=== PATIENT | female | born 1965 | race American Indian/Alaskan Native ===

== ENCOUNTER 2019-09-03 17:58 | Emergency (ER) | payer SELFPAY ==
[2019-09-03] MEDS ORDERED: ASPIRIN 325 MG TAB PO ONE (20:25)
--- NOTE | 2019-09-03 21:06 | XRay Report ---
. CHEST 2 VIEWS INDICATION / CLINICAL INFORMATION: Chest Pain. COMPARISON: None available. FINDINGS: SUPPORT DEVICES: None. HEART / MEDIASTINUM: No significant abnormality. LUNGS / PLEURA: No significant pulmonary or pleural abnormality. No pneumothorax. ADDITIONAL FINDINGS: No significant additional findings. IMPRESSION: 1. No acute findings. Signer Name: Gautam Smallwood MD Signed: 09/03/2019 9:01 PM Workstation Name: [id number]
[2019-09-03 21:19] LABS: Basophils % (Auto) 0.6 % (0.0-1.8); Eosinophils % (Auto) 0.1 % (0.0-4.3); Hematocrit 39.6 % (30.3-42.9); Hemoglobin 12.7 gm/dl (10.1-14.3); Lymphocytes # (Auto) 1.4 K/mm3 (1.2-5.4); Lymphocytes % (Auto) 48.5 % (13.4-35.0); Mean Corpuscular HGB Conc 32 % (30-34); Mean Corpuscular Volume 80 fl (79-97); Monocytes # (Auto) 0.4 K/mm3 (0.0-0.8); Monocytes % (Auto) 12.9 % (0.0-7.3); Platelet Count 238 K/mm3 (140-440); Red Blood Count 4.93 M/mm3 (3.65-5.03); Red Cell Distribution Width 14.8 % (13.2-15.2)
[2019-09-03 21:42] LABS: BUN/Creatinine Ratio 10; Blood Urea Nitrogen 9 mg/dL (7-17); Calcium 9.1 mg/dL (8.4-10.2)
[2019-09-03 21:43] LABS: Hemolysis Index 9
--- NOTE | 2019-09-03 23:11 | Emergency Department Report ---
ED Chest Pain HPI - General Chief Complaint: Chest Pain Stated Complaint: FELL/DIZZY/SOB/CP Time Seen by Provider: 09/03/19 23:08 Source: patient Mode of arrival: Ambulatory Limitations: No Limitations - History of Present Illness Severity scale (0 -10): 10 - Related Data Allergies Allergy/AdvReac Type Severity Reaction Status Date / Time No Known Allergies Allergy Unverified 09/03/19 18:09 ED Review of Systems ROS: Stated complaint: FELL/DIZZY/SOB/CP Other details as noted in HPI ED Past Medical Hx - Past Medical History Hx Hypertension: Yes Hx Diabetes: Yes - Surgical History Past Surgical History?: No - Social History Smoking Status: Unknown if ever smoked Substance Use Type: None ED Physical Exam - General Limitations: No Limitations ED Course Vital Signs 09/03/19 18:13 Temperature 99.4 F Pulse Rate 88 Respiratory 20 Rate Blood Pressure 166/96 [Right] O2 Sat by Pulse 97 Oximetry ED Medical Decision Making - Lab Data Result diagrams: 09/03/19 20:35 09/03/19 20:35 Critical care attestation.: If time is entered above; I have spent that time in minutes in the direct care of this critically ill patient, excluding procedure time. ED Disposition Condition: Stable Referrals: PRIMARY CARE, [Primary Care Provider] - 3-5 Days
[2019-09-03] MEDS ORDERED: ONDANSETRON 4 MG/2 ML INJ IV ONE (23:47)
[2019-09-03] MEDS ORDERED: MORPHINE 4 MG/1 ML INJ IV ONE (23:47)
[2019-09-04] MEDS ORDERED: ACETAMINOPHEN 500 MG TAB PO ONE (00:01)
[2019-09-04 01:32] LABS: C-Reactive Protein 0.7 mg/dL (0.00-1.30)
[2019-09-04 02:18] VITALS: BP 127/78
== END 2019-09-04 01:55 | disposition home or self-care (01) ==
LOC: ED 17:58
DX: R07.9 Chest pain, unspecified (principal); R06.02 Shortness of breath; R42 Dizziness and giddiness
CPT/HCPCS: 36415; 71046; 80048; 82728; 82947; 82962; 83615; 84145; 84484; 85025; 85379; 86140; 93005; 96374; 96375; 99285; J2270; J2405

== ENCOUNTER 2020-05-22 13:53 | Emergency (ER) | payer BC, MEDICAID, SELFPAY ==
[2020-05-22] MEDS ORDERED: TETANUS,DIPH,PERTUSS(ACELL) VACCINE 0.5 ML SYRINGE IM ONE (14:40)
--- NOTE | 2020-05-22 14:42 | Emergency Department Report ---
- General Chief Complaint: Wound/Laceration Stated Complaint: RT FINGER INJURY Time Seen by Provider: 05/22/20 14:32 Source: patient Mode of arrival: Ambulatory Limitations: No Limitations - History of Present Illness Initial Comments: This very pleasant 55-year-old female presents the emergency department chief complaint of an injury to her right middle finger. 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 She reports she sustained a small laceration. She is unsure of her last tetanus vaccine. She reports pain is now 10 in severity aggravated with any movement. Pain is described as dull and throbbing. - Related Data Previous Rx's Medication Instructions Recorded Last Taken Type Albuterol Mdi (or & Nicu Only) 1 puff IH QID PRN #8.5 gram 09/04/19 Unknown Rx [ProAir HFA Inhaler] Prednisone [predniSONE 5 mg (6-Day 5 mg PO .TAPER #1 tab.ds.pk 09/04/19 Unknown Rx Pack, 21 Tabs)] cephALEXin [Keflex] 500 mg PO Q8HR #30 cap 05/22/20 Unknown Rx traMADoL [Ultram 50 MG tab] 50 mg PO Q4HR PRN #12 tablet 05/22/20 Unknown Rx Allergies Allergy/AdvReac Type Severity Reaction Status Date / Time No Known Allergies Allergy Verified 05/22/20 14:04 ED Review of Systems ROS: Stated complaint: RT FINGER INJURY Other details as noted in HPI Comment: All other systems reviewed and negative Constitutional: denies: chills, fever Eyes: denies: eye pain, eye discharge, vision change ENT: denies: ear pain, throat pain Respiratory: denies: cough, shortness of breath, wheezing Cardiovascular: denies: chest pain, palpitations Endocrine: no symptoms reported Gastrointestinal: denies: abdominal pain, nausea, diarrhea Genitourinary: denies: urgency, dysuria, discharge Musculoskeletal: as per HPI, myalgia. denies: back pain, joint swelling, arthralgia Skin: denies: rash, lesions Neurological: denies: headache, weakness, paresthesias Psychiatric: denies: anxiety, depression Hematological/Lymphatic: denies: easy bleeding, easy bruising ED Past Medical Hx - Past Medical History Hx Hypertension: Yes Hx Diabetes: Yes - Social History Smoking Status: Never Smoker Substance Use Type: None - Medications Home Medications: Home Medications Medication Instructions Recorded Confirmed Last Taken Type Albuterol Mdi (or & Nicu Only) 1 puff IH QID PRN #8.5 gram 09/04/19 Unknown Rx [ProAir HFA Inhaler] Prednisone [predniSONE 5 mg (6-Day 5 mg PO .TAPER #1 tab.ds.pk 09/04/19 Unknown Rx Pack, 21 Tabs)] cephALEXin [Keflex] 500 mg PO Q8HR #30 cap 05/22/20 Unknown Rx traMADoL [Ultram 50 MG tab] 50 mg PO Q4HR PRN #12 tablet 05/22/20 Unknown Rx ED Physical Exam - General Limitations: No Limitations General appearance: alert, in no apparent distress - Head Head exam: Present: atraumatic, normocephalic - Eye Eye exam: Present: normal appearance, PERRL, EOMI Pupils: Present: normal accommodation - ENT ENT exam: Present: normal exam, normal orophraynx, mucous membranes moist - Neck Neck exam: Present: normal inspection, full ROM. Absent: tenderness, meningismus - Respiratory Respiratory exam: Present: normal lung sounds bilaterally. Absent: respiratory distress, wheezes, rales, rhonchi, stridor - Cardiovascular Cardiovascular Exam: Present: regular rate, normal rhythm, normal heart sounds. Absent: systolic murmur, diastolic murmur, rubs, gallop - GI/Abdominal GI/Abdominal exam: Present: soft, normal bowel sounds. Absent: distended, tenderness, guarding, rebound, rigid - Extremities Exam Extremities exam: Present: normal inspection, full ROM, tenderness (Tenderness to the distal tuft of the right third digit with a 1 cm superficial laceration. There is no active bleeding. There is normal distal sensation cap refill. There is ecchymosis to the tip of the finger. No deformity. Full active range of motion to full flexion extension of the DIP PIP a) - Back Exam Back exam: Present: normal inspection - Neurological Exam Neurological exam: Present: alert, oriented X3 - Psychiatric Psychiatric exam: Present: normal affect, normal mood - Skin Skin exam: Present: warm, dry, intact, normal color. Absent: rash ED Medical Decision Making - Radiology Data Radiology results: report reviewed, image reviewed Ordering Physician: ANDREA MCGEE Date of Service: 05/22/20 Procedure(s): XR finger(s) 2+V RT Accession Number(s): [id number] cc: ANDREA MCGEE Fluoro Time In Minutes: RIGHT RING FINGER, 3 VIEWS INDICATION: crush injury right 4rd finger. COMPARISON: No relevant prior imaging study available. FINDINGS: No acute, displaced fracture or dislocation is seen. No radiodense foreign bodies. IMPRESSION: 1. No acute findings. Signer Name: Tigre Ball MD Signed: 05/22/2020 3:14 PM Workstation Name: [id number] Transcribed By: KATHY Dictated By: Tigre Ball MD Electronically Authenticated By: Tigre Ball MD Signed Date/Time: 05/22/20 1514 - Medical Decision Making X-ray did not show any displaced fractures. The wound was thoroughly cleaned and irrigated in the ER. Tetanus is updated. Patient be discharged stable condition outpatient follow-up and pain medication. Recommend she return to the ER with any change or worsening symptoms patient verbalized understanding the diagnosis, treatment and follow-up instructions all questions were answered. - Differential Diagnosis Fracture, contusion, laceration Critical care attestation.: If time is entered above; I have spent that time in minutes in the direct care of this critically ill patient, excluding procedure time. ED Disposition Clinical Impression: Injury, crush, finger Qualifiers: Encounter type: initial encounter Qualified Code(s): S67.10XA - Crushing injury of unspecified finger(s), initial encounter Disposition: DC-01 TO HOME OR SELFCARE Is pt being admited?: No Condition: Stable Instructions: Crush Injury of the Hand, [id number] Prescriptions: cephALEXin [Keflex] 500 mg PO Q8HR #30 cap traMADoL [Ultram 50 MG tab] 50 mg PO Q4HR PRN #12 tablet PRN Reason: Pain Referrals: PRIMARY CAREMD [Primary Care Provider] - 3-5 Days [facility] [Provider Group] - 3-5 Days Forms: Work/School Release Form(ED) Time of Disposition: 15:22
--- NOTE | 2020-05-22 15:19 | XRay Report ---
RIGHT RING FINGER, 3 VIEWS INDICATION: crush injury right 4rd finger. COMPARISON: No relevant prior imaging study available. FINDINGS: No acute, displaced fracture or dislocation is seen. No radiodense foreign bodies. IMPRESSION: 1. No acute findings. Signer Name: Tigre Ball MD Signed: 05/22/2020 3:14 PM Workstation Name: [id number]
== END 2020-05-22 15:50 | disposition home or self-care (01) ==
LOC: ED 13:53
DX: S69.91XA Unspecified injury of right wrist, hand and finger(s), initial encounter (principal); I10 Essential (primary) hypertension; E11.9 Type 2 diabetes mellitus without complications; Z79.899 Other long term (current) drug therapy; X58.XXXA Exposure to other specified factors, initial encounter; Y93.89 Activity, other specified; Y92.89 Other specified places as the place of occurrence of the external cause; Y99.8 Other external cause status
CPT/HCPCS: 90471

== ENCOUNTER 2020-08-10 09:04 | Emergency (ER) | payer BC ==
[2020-08-10] MEDS ORDERED: ASPIRIN 325 MG TAB PO ONE (09:23)
--- NOTE | 2020-08-10 09:29 | Emergency Department Report ---
Blank Doc - Documentation Documentation: 55-year-old female that presents with worsening chest pains. Stated also has s ore throat and bilateral earaches. Denies any SOB. 1- This initial assessment/diagnostic orders/clinical plan/ treatment(s) is/are subject to change based on pt's health status, clinical progression and re- assessment by fellow clinical providers in the ED. Further treatment and workup at subsequent clinical provers discretion. Patient/guardians urged not to elope from ED as their condition may be serious if not clinically assessed and managed. 2-cardiac workup 3-strep swab
--- NOTE | 2020-08-10 09:57 | XRay Report ---
CHEST 2 VIEWS INDICATION / CLINICAL INFORMATION: chest pain. COMPARISON: 09/03/2019 FINDINGS: SUPPORT DEVICES: None. HEART / MEDIASTINUM: No significant abnormality. LUNGS / PLEURA: No significant pulmonary or pleural abnormality. No pneumothorax. ADDITIONAL FINDINGS: No significant additional findings. IMPRESSION: 1. No acute findings or significant interval change. Signer Name: Jarod Phillips MD Signed: 08/10/2020 9:53 AM Workstation Name: [id number]
[2020-08-10 10:08] LABS: Basophils % (Auto) 0.5 % (0.0-1.8); Eosinophils # (Auto) 0.1 K/mm3 (0.0-0.4); Eosinophils % (Auto) 1.1 % (0.0-4.3); Hematocrit 37.6 % (30.3-42.9); Hemoglobin 12.2 gm/dl (10.1-14.3); Lymphocytes # (Auto) 1.4 K/mm3 (1.2-5.4); Lymphocytes % (Auto) 26.1 % (13.4-35.0); Mean Corpuscular HGB Conc 32 % (30-34); Mean Corpuscular Volume 82 fl (79-97); Monocytes # (Auto) 0.3 K/mm3 (0.0-0.8); Monocytes % (Auto) 6.5 % (0.0-7.3); Platelet Count 271 K/mm3 (140-440); Red Blood Count 4.59 M/mm3 (3.65-5.03); Red Cell Distribution Width 14.4 % (13.2-15.2)
[2020-08-10 10:17] LABS: Alanine Aminotransferase 22 units/L (7-56); Albumin 4.3 g/dL (3.9-5); Blood Urea Nitrogen 10 mg/dL (7-17); Calcium 9.2 mg/dL (8.4-10.2); Hemolysis Index 2
[2020-08-10 10:24] LABS: INR 0.91 (0.87-1.13)
[2020-08-10 10:25] LABS: Partial Thromboplastin Time 24.3 Sec. (24.2-36.6)
[2020-08-10 10:36] LABS: BUN/Creatinine Ratio 14
[2020-08-10 21:12] VITALS: BP 165/80
--- NOTE | 2020-08-10 21:52 | Emergency Department Report ---
- General Chief Complaint: Chest Pain Stated Complaint: CHEST/THORAT/EAR PAIN Time Seen by Provider: 08/10/20 09:27 Source: patient Mode of arrival: Ambulatory Limitations: No Limitations - History of Present Illness Initial Comments: 55-year-old F [place] female [facility] emerge department complaining of a 1 week history of cough congestion and coryza breath has progressed to sore throat nasal congestion and now a productive cough. States she is been having sensation left feeling sick and also some vague chest pains of an unknown etiology. She reports no hemoptysis no hematemesis no hematochezia, no headache no blurred vision there is no tinnitus no presyncope MD Complaint: cough, sore throat, rhinorrhea -: Gradual Severity: mild, moderate Quality: dull Consistency: constant Improves With: nothing Worsens With: nothing Associated Symptoms: rhinorrhea, nasal congestion, sore throat, cough. denies: diaphoresis, chest pain, shortness of breath, abdominal pain, nausea, vomiting, dysuria, confusion, right sweats, weight loss, epistaxis, ear pain Treatments Prior to Arrival: none - Related Data Previous Rx's Medication Instructions Recorded Last Taken Type Albuterol Mdi (or & Nicu Only) 1 puff IH QID PRN #8.5 gram 09/04/19 Unknown Rx [ProAir HFA Inhaler] Prednisone [predniSONE 5 mg (6-Day 5 mg PO .TAPER #1 tab.ds.pk 09/04/19 Unknown Rx Pack, 21 Tabs)] cephALEXin [Keflex] 500 mg PO Q8HR #30 cap 05/22/20 Unknown Rx traMADoL [Ultram 50 MG tab] 50 mg PO Q4HR PRN #12 tablet 05/22/20 Unknown Rx Albuterol Mdi (or & Nicu Only) 1 puff IH Q4-6H PRN #1 inha 08/10/20 Unknown Rx [ProAir HFA Inhaler] Azithromycin [Zithromax] 500 mg PO QDAY #5 tablet 08/10/20 Unknown Rx Benzonatate [Tessalon Perles] 100 mg PO Q8HR #20 capsule 08/10/20 Unknown Rx Allergies Allergy/AdvReac Type Severity Reaction Status Date / Time No Known Allergies Allergy Verified 08/10/20 09:22 ED Review of Systems ROS: Stated complaint: CHEST/THORAT/EAR PAIN Other details as noted in HPI Comment: All other systems reviewed and negative ED Past Medical Hx - Past Medical History Hx Hypertension: Yes Hx Diabetes: Yes - Social History Smoking Status: Never Smoker Substance Use Type: None - Medications Home Medications: Home Medications Medication Instructions Recorded Confirmed Last Taken Type Albuterol Mdi (or & Nicu Only) 1 puff IH QID PRN #8.5 gram 09/04/19 Unknown Rx [ProAir HFA Inhaler] Prednisone [predniSONE 5 mg (6-Day 5 mg PO .TAPER #1 tab.ds.pk 09/04/19 Unknown Rx Pack, 21 Tabs)] cephALEXin [Keflex] 500 mg PO Q8HR #30 cap 05/22/20 Unknown Rx traMADoL [Ultram 50 MG tab] 50 mg PO Q4HR PRN #12 tablet 05/22/20 Unknown Rx Albuterol Mdi (or & Nicu Only) 1 puff IH Q4-6H PRN #1 inha 08/10/20 Unknown Rx [ProAir HFA Inhaler] Azithromycin [Zithromax] 500 mg PO QDAY #5 tablet 08/10/20 Unknown Rx Benzonatate [Tessalon Perles] 100 mg PO Q8HR #20 capsule 08/10/20 Unknown Rx ED Physical Exam - General Limitations: No Limitations General appearance: alert, in no apparent distress - Head Head exam: Present: atraumatic, normocephalic - Eye Eye exam: Present: normal appearance - ENT ENT exam: Present: mucous membranes moist, other (Pharynx has erythema with no exudate) - Neck Neck exam: Present: normal inspection, full ROM - Respiratory Respiratory exam: Present: normal lung sounds bilaterally. Absent: respiratory distress, wheezes, rales, chest wall tenderness, accessory muscle use - Cardiovascular Cardiovascular Exam: Present: regular rate, normal rhythm. Absent: systolic murmur, diastolic murmur, rubs, gallop - GI/Abdominal GI/Abdominal exam: Present: soft, normal bowel sounds - Extremities Exam Extremities exam: Present: normal inspection - Back Exam Back exam: Present: normal inspection - Neurological Exam Neurological exam: Present: alert, oriented X3 - Psychiatric Psychiatric exam: Present: normal affect, normal mood - Skin Skin exam: Present: warm, dry, intact, normal color. Absent: rash ED Course Vital Signs 08/10/20 08/10/20 09:21 21:10 Temperature 98.2 F 98.2 F Pulse Rate 71 58 L Respiratory 13 18 Rate Blood Pressure 145/82 165/80 O2 Sat by Pulse 100 100 Oximetry ED Medical Decision Making - Lab Data Result diagrams: 08/10/20 09:33 08/10/20 09:33 - Radiology Data Radiology results: report reviewed [address] [place] [id number] XRay Report Signed Patient: TONEY HA MR#: [id number] : 1965 Acct:[id number] Age/Sex: 55 / F ADM Date: 08/10/20 Loc: ED Attending Dr: Ordering Physician: ED MD MARGOTH Date of Service: 08/10/20 Procedure(s): XR chest routine 2V Accession Number(s): [id number] cc: ED MD MARGOTH Fluoro Time In Minutes: CHEST 2 VIEWS INDICATION / CLINICAL INFORMATION: chest pain. COMPARISON: 09/03/2019 FINDINGS: SUPPORT DEVICES: None. HEART / MEDIASTINUM: No significant abnormality. LUNGS / PLEURA: No significant pulmonary or pleural abnormality. No pneumothorax. ADDITIONAL FINDINGS: No significant additional findings. IMPRESSION: 1. No acute findings or significant interval change. Signer Name: Jarod Phillips MD Signed: 08/10/2020 9:53 AM Workstation Name: [id number] Transcribed By: Dictated By: JAROD PHILLIPS III Electronically Authenticated By: JAROD PHILLIPS III Signed Date/Time: 08/10/20952 DD/ 1 TD/TT: Print Cancel - Medical Decision Making This patient presents with chest pain that is very unlikely angina or acute coronary syndrome. The emergency department evaluation has not identified any cause for suspicion that this chest pain has a cardiac etiology. Based on their history, EKG (which showed no evidence of ischemia or infarction) and imaging, in addition to the patient's physical exam, I see no evidence at this time for a malignant etiology for the patient's chest pain. There is no acute evidence for pulmonary embolus, acute myocardial infarction, pneumothorax, Boerhaeve syndrome, cardiac tamponade, thoracic artery dissection, or any other emergent cardiac, pulmonary or aortic pathology. Given the low pre-test probability for cardiac etiology of chest pain and the absence of any sign of ischemia or infarction, discharge for outpatient follow-up and further evaluation is reasonable. I have explained to the patient that even though a cardiac problem is very unlikely, follow-up and further testing is required to reduce further the already small uncertainty that exists. Other life-threatening diagnoses have been considered. The patient understands the need to return immediately if their symptoms worsen or they develop any new symptoms, and not to engage in any significant exertional activity until follow-up is obtained. This 55-year-old patient presents with symptoms suspicious for likely viral upper respiratory tract infection. Differential includes bacterial pneumonia, sinusitis, allergic rhinitis, pharyngitis. Do not suspect underlying Cardiopulmonary process. I considered but think unlikely dangerous cause of this patient symptoms to include acute coronary syndrome, CHF or COPD exacerbations, pneumonia, pneumothorax. Patient is nontoxic appearing and not in need of emergent medical intervention. Plan: Reassurance, reassessment, [id number] medications, discharge with PCP follow-up Critical care attestation.: If time is entered above; I have spent that time in minutes in the direct care of this critically ill patient, excluding procedure time. ED Disposition Clinical Impression: Cough, URI (upper respiratory infection) Disposition: DC-01 TO HOME OR SELFCARE Is pt being admited?: No Does the pt Need Aspirin: No Condition: Stable Instructions: Viral Respiratory Infection Test, Upper Respiratory Infection, Adult, Cool Mist Vaporizer, Cough, Adult Referrals: PRIMARY CARE, [Primary Care Provider] - 3-5 Days [facility] [Provider Group] - 3-5 Days
[2020-08-10] MEDS ORDERED: ACETAMINOPHEN 500 MG TAB PO ONE (22:40)
[2020-08-10] MEDS ORDERED: IBUPROFEN 600 MG TAB PO ONE (22:40)
--- NOTE | 2020-08-14 12:59 | Electrocardiograph Report ---
[facility] Test Date: 2020-08-10 Test Time: 09:24:54 Pat Name: TONEY HA Department: Room: Gender: F Electronic Security Technician: ANI : 1965 Requested By: ANDERS ROSEN Order Number: [id number] Reading MD: Everett Killian Measurements Intervals [place] Rate: 72 P: 66 AK: 140 QRS: 64 QRSD: 71 T: 37 QT: 397 QTc: 433 Interpretive Statements Sinus rhythm No previous ECG available for comparison Electronically Signed On 08-14-2020 12:59:34 EDT by Everett Killian
== END 2020-08-10 23:10 | disposition home or self-care (01) ==
LOC: ED 09:04
DX: J06.9 Acute upper respiratory infection, unspecified (principal); R05 Cough; I10 Essential (primary) hypertension; E11.9 Type 2 diabetes mellitus without complications; Z79.899 Other long term (current) drug therapy
CPT/HCPCS: 36415; 71046; 80053; 84484; 85025; 85610; 85730; 93005